=== PATIENT | female | born 1965 | race American Indian/Alaskan Native ===

== ENCOUNTER 2017-03-25 10:47 | Outpatient (CLI) | payer MEDICARE ==
--- NOTE | 2017-03-25 14:46 | Mammography Report ---
BILATERAL MAMMOGRAM with CAD: HISTORY:Cancer screening. Prior studies are unavailable, and the patient is uncertain of their location. FINDINGS: The breasts are almost entirely fat (<25% glandular). No mass, distortion, suspicious calcification, or skin change is seen. IMPRESSION: Negative mammogram. There is no mammographic evidence of malignancy. RECOMMENDATION: Follow-up per ACS guidelines. BI-RADS CATEGORY: 1 = Negative ACR BI-RADS MAMMOGRAPHIC CODES: 0 = Needs additional imaging evaluation; 1 = Negative; 2 = Benign; 3 = Probably benign; 4 = Suspicious; 5 = Malignant; 6 = Known biopsy-proven malignancy COMMENT: 1. Dense breast tissue, i.e., adenosis, fibrocystic changes, etc., may obscure an underlying neoplasm. 2. Approximately 10% of cancers are not detected with mammography. 3. A negative mammography report should not delay biopsy if a clinically suspicious mass is present. COMMENT: Patient follow-up letters are generated in [employer].
== END 2017-03-25 10:48 | disposition home or self-care (01) ==
LOC: MAMMO 10:47
PROVIDERS: ATTEND Internal Medicine
DX: Z12.31 Encounter for screening mammogram for malignant neoplasm of breast (principal)
CPT/HCPCS: 77067; G0202

== ENCOUNTER 2017-09-23 10:17 | Outpatient (CLI) | payer MEDICARE ==
--- NOTE | 2017-09-23 11:34 | XRay Report ---
PARANASAL SINUSES: History: Chronic sinusitis. Multiple views of the paranasal sinuses demonstrate normal formation with no abnormal mucoperiosteal thickening or fluid levels. The bony [place] are intact. IMPRESSION: Normal study.
== END 2017-09-23 10:18 | disposition home or self-care (01) ==
LOC: XRAY 10:17
PROVIDERS: ATTEND Internal Medicine
DX: J32.9 Chronic sinusitis, unspecified (principal)
CPT/HCPCS: 70220

== ENCOUNTER 2017-10-19 15:28 | Outpatient (CLI) | payer MEDICARE ==
--- NOTE | 2017-10-19 16:12 | Cat Scan Report ---
FINAL REPORT EXAM: CT SINUSES WO CON HISTORY: SINUS TECHNIQUE: CT of the Sinuses without IV contrast. Coronal and sagittal reconstructed imaging provided. PRIORS: None currently available. FINDINGS: Paranasal sinuses are developed. Aplastic or hypoplastic right frontal sinus. No significant mucosal thickening. No air-fluid levels. No expansile destructive features. No nasal cavity lesion identified. There is no fracture. Nasal septum is mildly deviated to the right. Globes appear intact. Retrobulbar space is negative. Images of the middle ear and mastoid air cells are negative. Anterior subluxations at the temporomandibular joints suspected given the closed mouth. The infratemporal fossa is unremarkable. Facial soft tissues are grossly noted. IMPRESSION: Deviated nasal septum. 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
== END 2017-10-19 15:29 | disposition home or self-care (01) ==
LOC: CT 15:28
PROVIDERS: ATTEND Internal Medicine
DX: J32.1 Chronic frontal sinusitis (principal); J34.2 Deviated nasal septum
CPT/HCPCS: 70486